=== PATIENT | male | born 2000 | race African-American/Black ===

== ENCOUNTER 2025-08-20 12:29 | Emergency (ER) | payer SELFPAY ==
[~2025-08-20] VITALS: Ht 177.8 cm; Wt 95.0 kg
[2025-08-20 12:39] VITALS: O2SAT 97
[2025-08-20 13:01] VITALS: BP 142/86; PULSE 89; RESP 18; TEMP 36.9; O2SAT 99
[2025-08-20 13:39] LABS: CLARITY URINE CLEAR (CLEAR); COLOR URINE YELLOW (YELLOW); GLUCOSE URINE NEGATIVE (NEGATIVE); KETONES URINE NEGATIVE (NEGATIVE); LEUKOCYTE ESTERASE URINE NEGATIVE (NEGATIVE); NITRITE URINE NEGATIVE (NEGATIVE); OCCULT BLOOD URINE NEGATIVE (NEGATIVE); PH URINE 5.5 (4.5-8.0); PROTEIN URINE NEGATIVE (NEGATIVE); SPECIFIC GRAVITY URINE 1.027 (1.005-1.030); UROBILINOGEN URINE 0.2 E.U./dL (0.2-1.0)
[2025-08-20] MEDS ORDERED: ONDANSETRON 4MG ODT PO ONE (15:45)
== END 2025-08-20 15:38 | disposition left against medical advice (07) ==
LOC: ER 12:42
DX: R41.82 Altered mental status, unspecified (principal)
CPT/HCPCS: 81003; 99281